=== PATIENT | female | born 1950 | race Asian ===

== ENCOUNTER 2024-03-27 20:08 | Emergency (ER) | payer OTHER ==
[2024-03-27 20:15] VITALS: BP 126/72; PULSE 80; RESP 18; TEMP 99.4; BMI 58.6
[2024-03-27] MEDS ORDERED: predniSONE 20 MG TABLET (UD) ONE (21:45)
[2024-03-27] MEDS ORDERED: ACETAMINOPHEN 500 MG TABLET (FP) ONE (21:45)
[2024-03-27] MEDS ORDERED: valACYclovir HCL 500 MG TABLET (FP) ONE (21:45)
[2024-03-27] MEDS: valACYclovir HCL 500 MG TABLET (FP) PO ONE (21:48)
[2024-03-27] MEDS: predniSONE 20 MG TABLET (UD) PO ONE (21:48)
[2024-03-27] MEDS: ACETAMINOPHEN 500 MG TABLET (FP) PO ONE (21:48)
== END 2024-03-27 22:31 | disposition home or self-care (01) ==
LOC: JER 20:08 → JERFT 20:08
DX: R21 Rash and other nonspecific skin eruption (principal); B02.9 Zoster without complications
CPT/HCPCS: 99283-25

== ENCOUNTER 2024-04-23 09:30 | Observation (INO) | payer OTHER ==
[2024-04-23] MEDS ORDERED: ACETAMINOPHEN INJECTION 100 ML ONE (11:33)
[2024-04-23 11:42] LABS: BASO % 0.2 % (0-2.0); EOS % 3.3 % (0-4.5); LYMPH % 28.5 % (8-40); MCH 30.7 pg (25.7-33.7); MCHC 33.4 g/dl (32.0-36.0); MEAN CELL VOLUME 91.8 fl (80-96); MEAN PLT VOLUME 8.8 fl (7.5-11.1); MONO % 7.6 % (3.8-10.2); NEUT % 60.4 % (42.8-82.8); PLATELET COUNT 305 10^3/uL (134-434); RBC 4.58 M/mm3 (3.60-5.2); RDW 13.7 % (11.6-15.6); WHITE BLOOD COUNT 10.7 K/mm3 (4.0-10.0)
[2024-04-23] MEDS: ACETAMINOPHEN 1000 MG/100 ML BAG IVPB ONE (11:46)
[2024-04-23 11:58] LABS: POTASSIUM 4.1 mmol/L (3.5-5.1)
[2024-04-23 11:59] LABS: ALBUMIN 3.7 g/dl (3.4-5.0); BLOOD UREA NITROGEN 12.1 mg/dL (7-18); CALCIUM 9.2 mg/dL (8.5-10.1)
[2024-04-23] MEDS: hydrOXYzine PAMOATE 50 MG CAPSULE (FP) PO ONE (12:02)
[2024-04-23 12:04] LABS: CREATININE 0.7 mg/dL (0.55-1.3)
[2024-04-23 12:05] LABS: BILIRUBIN,TOTAL 0.4 mg/dL (0.2-1); TOT PROT 8.4 g/dl (6.4-8.2)
[2024-04-23] MEDS ORDERED: HYDROCORTISONE 1% TOPICAL CREAM 30 GM TUBE TP PRN (13:36)
[2024-04-23 13:55] LABS: HIV INTERPRETATION NEGATIVE (NEGATIVE)
[2024-04-23] MEDS ORDERED: LORATADINE 10 MG TABLET ONE (14:30)
[2024-04-23] MEDS: WATER IVPB ONE (14:35)
[2024-04-23] MEDS: FOLIC ACID 1 MG TABLET (FP) PO SCH (14:35)
[2024-04-23] MEDS: DEXTROSE 5% IVPB ONE (14:35)
[2024-04-23] MEDS: ACYCLOVIR IVPB ONE (14:35)
[2024-04-23] MEDS: LORATADINE 10 MG TABLET PO SCH (14:47)
[2024-04-23 17:38] VITALS: BMI 35.4
[2024-04-23] MEDS: ATORVASTATIN CA 20 MG TABLET (FP) PO SCH (21:11)
[2024-04-23] MEDS: GABAPENTIN 300 MG CAPSULE PO SCH (21:11)
[2024-04-23] MEDS: HYDROCORTISONE 1% TOPICAL CREAM 30 GM TUBE TP PRN (22:20)
[2024-04-24 08:22] LABS: HEMATOCRIT 42.3 % (32.4-45.2); HEMOGLOBIN 14.1 GM/dL (10.7-15.3); MCH 30.8 pg (25.7-33.7); MCHC 33.4 g/dl (32.0-36.0); MEAN CELL VOLUME 92.2 fl (80-96); MEAN PLT VOLUME 9.3 fl (7.5-11.1); PLATELET COUNT 297 10^3/uL (134-434); RBC 4.59 M/mm3 (3.60-5.2); RDW 13.7 % (11.6-15.6); WHITE BLOOD COUNT 7.9 K/mm3 (4.0-10.0)
[2024-04-24 08:35] LABS: POTASSIUM 3.9 mmol/L (3.5-5.1)
[2024-04-24 08:42] LABS: CALCIUM 8.9 mg/dL (8.5-10.1)
[2024-04-24 08:46] LABS: CREATININE 0.7 mg/dL (0.55-1.3)
[2024-04-24] MEDS: FERROUS SO4 325 MG TABLET (FP) PO SCH (09:14)
[2024-04-24] MEDS: FOLIC ACID 1 MG TABLET (FP) PO SCH (09:15)
[2024-04-24] MEDS: ESCITALOPRAM OXALATE 10 MG TABLET PO SCH (09:15)
[2024-04-24] MEDS: amLODIPine BESYLATE 10 MG TABLET (FP) PO SCH (09:15)
[2024-04-24] MEDS: predniSONE 20 MG TABLET (UD) PO SCH (18:05)
[2024-04-24] MEDS: FAMOTIDINE 20 MG TABLET PO SCH (18:05)
[2024-04-25 07:00] VITALS: PULSE 75
[2024-04-25 11:00] VITALS: BP 150/98; RESP 17; TEMP 97.5
== END 2024-04-25 16:21 | disposition home or self-care (01) ==
LOC: JER 09:30 → JERBED 12:22 → J8W 16:35
PROVIDERS: ADMIT Student in an Organized Health Care Education/Training Program; ATTEND Internal Medicine
PROC: 3E033NZ Introduction of Analgesics, Hypnotics, Sedatives into Peripheral Vein, Percutaneous Approach (ICD-10-PCS; principal; 2024-04-23)
PROC: 3E033GC Introduction of Other Therapeutic Substance into Peripheral Vein, Percutaneous Approach (ICD-10-PCS; 2024-04-23)
DX: B02.7 Disseminated zoster (principal); L27.0 Generalized skin eruption due to drugs and medicaments taken internally; M06.9 Rheumatoid arthritis, unspecified; M79.7 Fibromyalgia; I10 Essential (primary) hypertension; F32.A Depression, unspecified; E78.5 Hyperlipidemia, unspecified; D33.3 Benign neoplasm of cranial nerves; Z96.653 Presence of artificial knee joint, bilateral
CPT/HCPCS: 36415; 80048; 80053; 83036; 85025; 85027; 86803; 87389; 93005; 93010; 96374; 96375; 97116-GP; 97161-GP; 99285-25; G0378; J0131